=== PATIENT | male | born 1980 | race Caucasian/White ===

== ENCOUNTER 2021-03-20 14:36 | Emergency (ER) | payer MEDICAID ==
[~2021-03-20] VITALS: Ht 172.7 cm; Wt 78.0 kg
[2021-03-20] MEDS ORDERED: SODIUM CHLORIDE 0.9% 1000ML BAG (SEPSIS BOLUS) IV ONE (14:45)
[2021-03-20] MEDS ORDERED: CALCIUM GLUCONATE 100MG/ML 10ML VIAL IV ONE (14:45)
[2021-03-20] MEDS ORDERED: NALOXONE HCL 0.4 MG/ML 1ML VIAL IV ONE (14:45)
[2021-03-20] MEDS: CALCIUM GLUCONATE 1GM PREMIX 50 ML IV SCH ×2 (15:48→17:11)
[2021-03-20 16:10] LABS: CLARITY URINE CLEAR (CLEAR); COLOR URINE DARK YELLOW (YELLOW); KETONES URINE NEGATIVE (NEGATIVE); LEUKOCYTE ESTERASE URINE NEGATIVE (NEGATIVE); NITRITE URINE NEGATIVE (NEGATIVE); OCCULT BLOOD URINE NEGATIVE (NEGATIVE); PROTEIN URINE NEGATIVE (NEGATIVE); SPECIFIC GRAVITY URINE 1.014 (1.005-1.030)
[2021-03-20] MEDS ORDERED: VANCOMYCIN 1 G PREMIX 200 ML IV ONE (16:15)
[2021-03-20] MEDS ORDERED: PIPERACILLIN/TAZ 3.375G PREMIX 50 ML IV ONE (16:15)
[2021-03-20 16:50] LABS: *AMPHETAMINES SCREEN URINE PRESUMTIVE POSITIVE (NEGATIVE); *BARBITURATES SCREEN URINE NEGATIVE (NEGATIVE); CANNABINOID URINE SCREEN NEGATIVE (NEGATIVE); OPIATES URINE SCREEN NEGATIVE (NEGATIVE); PHENCYCLIDINE URINE SCREEN NEGATIVE (NEGATIVE)
[2021-03-20 16:51] LABS: *BENZODIAZEPINES SCREEN URINE NEGATIVE (NEGATIVE); *COCAINE SCREEN URINE NEGATIVE (NEGATIVE); METHADONE URINE SCREEN NEGATIVE (NEGATIVE)
[2021-03-20 18:34] LABS: BASOPHILS % 0.9 % (0.0-2.0); EOSINOPHILS % 0.9 % (0.0-5.0); HEMATOCRIT. 35.8 % (42.0-52.0); HEMOGLOBIN. 12.7 g/dL (14.0-18.0); LYMPHOCYTES % 16.3 % (20.0-50.0); MEAN CORPUSCULAR VOLUME 95.4 fL (80.0-94.0); MONOCYTES % 7.6 % (2.0-8.0); NEUTROPHILS % 74.3 % (40.0-76.0); PLATELET 143 x1000/uL (130-400); RED BLOOD CELL COUNT 3.75 mill/uL (4.7-6.1); RED CELL DISTRIBUTION WIDTH 14.2 % (11.6-14.6)
[2021-03-20 18:40] LABS: CHLORIDE 110 mEq/L (98-107)
[2021-03-20 18:44] LABS: ETHANOL BLOOD < 10 mg/dL
[2021-03-20 19:03] LABS: D-DIMER 1.33 mg/L FEU (<0.50); INR 1.2
[2021-03-20 21:00] VITALS: BP 117/74
[2021-03-20] MEDS ORDERED: IOHEXOL-300 100 ML BOTTLE ONE (23:26)
== END 2021-03-20 23:00 | disposition left against medical advice (07) ==
LOC: ER 14:36 → EDBEDREQSVC 22:21 → EDBEDREQ 22:21 → EDBEDREQTM 22:21 → ENRESERV 22:51 → CANRESERV 22:51 → ER 23:00 → CANBEDREQ 03-21 01:08
DX: I61.9 Nontraumatic intracerebral hemorrhage, unspecified (principal); I49.9 Cardiac arrhythmia, unspecified
CPT/HCPCS: 36415; 70450; 71045; 74177; 80053; 80305; 80320; 81003; 83605; 83690; 84145; 84484; 85025; 85379; 85610; 86850; 86900; 86901; 87040; 87086; 93005; 96361; 96365; 96375; 99285; J0610; J2310; J2543; J7030; Q9967; Z7610; G0480

== ENCOUNTER 2021-03-23 22:30 | Inpatient (IN) | payer MEDICAID, OTHER ==
[~2021-03-23] VITALS: Ht 170.2 cm; Wt 84.4 kg
[2021-03-23] MEDS ORDERED: PIPERACILLIN/TAZ 3.375G PREMIX 50 ML IV ONE (22:45)
[2021-03-23] MEDS ORDERED: NALOXONE HCL 1 MG/ML 2ML VIAL IV ONE (22:45)
[2021-03-23] MEDS ORDERED: SODIUM CHLORIDE 0.9% 1000ML BAG (SEPSIS BOLUS) IV ONE (22:45)
[2021-03-23 23:23] LABS: BASOPHILS % 0.4 % (0.0-2.0); CHLORIDE 108 mEq/L (98-107); EOSINOPHILS % 2.2 % (0.0-5.0); HEMOGLOBIN. 10.4 g/dL (14.0-18.0); LYMPHOCYTES % 30.5 % (20.0-50.0); MEAN CORPUSCULAR HEMOGLOBIN 35.2 pg (28.0-32.0); MEAN CORPUSCULAR VOLUME 97.9 fL (80.0-94.0); MEAN PLATELET VOLUME 8.8 fl (7.4-10.4); MONOCYTES % 10.2 % (2.0-8.0); NEUTROPHILS % 56.7 % (40.0-76.0); PLATELET 135 x1000/uL (130-400); RED BLOOD CELL COUNT 2.96 mill/uL (4.7-6.1); RED CELL DISTRIBUTION WIDTH 13.9 % (11.6-14.6)
[2021-03-23 23:27] LABS: ETHANOL BLOOD 13 mg/dL
[2021-03-24] MEDS ORDERED: ONDANSETRON HCL 4MG/2ML INJ IV PRN (11:15)
[2021-03-24] MEDS ORDERED: HYDROCODONE/ACETAMINOPHEN 5/325MG TABLET PO PRN (11:15)
[2021-03-24] MEDS ORDERED: DOCUSATE SODIUM 100MG CAPSULE PO PRN (11:15)
[2021-03-24] MEDS ORDERED: MAGNESIUM/ALUMINUM HYDROXIDE/SIMETHICONE 30ML UDC PO PRN (11:15)
[2021-03-24] MEDS ORDERED: ACETAMINOPHEN 325MG TABLET PO PRN (11:15)
[2021-03-24] MEDS ORDERED: POTASSIUM CHLORIDE INJ 40 MEQ in DEXT 5% WATER 250 ML IV NR (11:15)
[2021-03-24] MEDS ORDERED: NALOXONE HCL 0.4MG/ML VIAL IV PRN (11:30)
[2021-03-24] MEDS: SODIUM CHLORIDE 0.9% 1,000 ML IV SCH (12:28)
[2021-03-24] MEDS: PANTOPRAZOLE SODIUM 40 MG/VIAL IV SCH (12:29)
[2021-03-24] MEDS: LACTULOSE 20G/30ML UDC PO SCH ×2 (13:15→21:53)
[2021-03-24] MEDS ORDERED: POTASSIUM CHLORIDE 20MEQ TABLET SR PO NR (17:30)
[2021-03-24 18:00] VITALS: BP 133/81
[2021-03-24] MEDS ORDERED: ENOXAPARIN 40MG/0.4ML SYR SUBCUT SCH (18:00)
[2021-03-24 20:00] VITALS: BP 139/80
[2021-03-24 20:39] LABS: *AMPHETAMINES SCREEN URINE PRESUMTIVE POSITIVE (NEGATIVE); *BARBITURATES SCREEN URINE NEGATIVE (NEGATIVE); *BENZODIAZEPINES SCREEN URINE NEGATIVE (NEGATIVE); *COCAINE SCREEN URINE NEGATIVE (NEGATIVE)
[2021-03-24 20:40] LABS: CANNABINOID URINE SCREEN NEGATIVE (NEGATIVE); METHADONE URINE SCREEN NEGATIVE (NEGATIVE); OPIATES URINE SCREEN PRESUMTIVE POSITIVE (NEGATIVE); PHENCYCLIDINE URINE SCREEN NEGATIVE (NEGATIVE)
[2021-03-24 21:17] LABS: CLARITY URINE CLEAR (CLEAR); COLOR URINE YELLOW (YELLOW); SPECIFIC GRAVITY URINE 1.018 (1.005-1.030)
[2021-03-24 21:18] LABS: KETONES URINE NEGATIVE (NEGATIVE); NITRITE URINE NEGATIVE (NEGATIVE); OCCULT BLOOD URINE NEGATIVE (NEGATIVE); PROTEIN URINE NEGATIVE (NEGATIVE)
[2021-03-24 21:19] LABS: LEUKOCYTE ESTERASE URINE NEGATIVE (NEGATIVE)
[2021-03-24 22:00] VITALS: BP 133/76
[2021-03-24] MEDS: THIAMINE HCL 100MG TABLET PO SCH (23:29)
[2021-03-24] MEDS: FOLIC ACID 1MG TABLET PO SCH (23:29)
[2021-03-24] MEDS: MULTIVITAMINS,THER W-MINERALS TABLET PO SCH (23:30)
[2021-03-25] VITALS (8 sets, daily range): BP systolic 122–146; BP diastolic 72–92
[2021-03-25] MEDS: SODIUM CHLORIDE 0.9% 1,000 ML IV SCH (00:28)
[2021-03-25] MEDS ORDERED: QUET200T MT (03:11)
[2021-03-25] MEDS ORDERED: CALC-1042 MT (03:11)
[2021-03-25] MEDS ORDERED: FAMO10TA41 MT (03:23)
[2021-03-25] MEDS ORDERED: PROP10TA10 MT (03:23)
[2021-03-25] MEDS ORDERED: LURA120T MT (03:23)
[2021-03-25] MEDS ORDERED: ASCO100T12 MT (03:23)
[2021-03-25] MEDS ORDERED: ACET325C7 PO (03:23)
[2021-03-25] MEDS ORDERED: IBUP-2028 MT (03:23)
[2021-03-25] MEDS: LACTULOSE 20G/30ML UDC PO SCH ×2 (05:47→14:38)
[2021-03-25 06:50] LABS: CHLORIDE 107 mEq/L (98-107)
[2021-03-25 07:01] LABS: PHOSPHORUS 2.4 mg/dL (2.5-4.9)
[2021-03-25 07:02] LABS: LDL CHOLESTEROL 107 mg/dL (5-100); T4 FREE 1.04 ng/dL (0.76-1.46)
[2021-03-25 07:03] LABS: HDL CHOLESTEROL 16 mg/dL (40-59)
[2021-03-25 07:06] LABS: FOLIC ACID (FOLATE) SERUM 12.7 ng/mL (>5.38)
[2021-03-25 07:27] LABS: BASOPHILS % 0.5 % (0.0-2.0); EOSINOPHILS % 2.4 % (0.0-5.0); HEMOGLOBIN. 11.7 g/dL (14.0-18.0); LYMPHOCYTES % 24.3 % (20.0-50.0); MEAN CORPUSCULAR VOLUME 96.2 fL (80.0-94.0); MEAN PLATELET VOLUME 9.4 fl (7.4-10.4); MONOCYTES % 7.6 % (2.0-8.0); NEUTROPHILS % 65.2 % (40.0-76.0); PLATELET 129 x1000/uL (130-400); RED BLOOD CELL COUNT 3.54 mill/uL (4.7-6.1); RED CELL DISTRIBUTION WIDTH 13.7 % (11.6-14.6)
[2021-03-25] MEDS: THIAMINE HCL 100MG TABLET PO SCH (08:19)
[2021-03-25] MEDS: FOLIC ACID 1MG TABLET PO SCH (08:19)
[2021-03-25] MEDS: MULTIVITAMINS,THER W-MINERALS TABLET PO SCH (08:19)
[2021-03-25] MEDS: PANTOPRAZOLE SODIUM 40 MG/VIAL IV SCH (08:19)
== END 2021-03-25 15:55 | disposition home or self-care (01) | DRG 52 ==
LOC: ER 22:30 → MICUSO 03-24 01:44 → EDBEDREQ 03-24 02:01 → 8WST 03-24 16:01
PROVIDERS: ADMIT Internal Medicine; ATTEND Internal Medicine
DX: G92 Toxic encephalopathy (principal); E44.0 Moderate protein-calorie malnutrition; E87.2 Acidosis; E87.8 Other disorders of electrolyte and fluid balance, not elsewhere classified; I95.9 Hypotension, unspecified; E72.20 Disorder of urea cycle metabolism, unspecified; G90.8 Other disorders of autonomic nervous system; D64.9 Anemia, unspecified; E87.6 Hypokalemia; F10.129 Alcohol abuse with intoxication, unspecified; Y90.9 Presence of alcohol in blood, level not specified; F17.200 Nicotine dependence, unspecified, uncomplicated; Z68.29 Body mass index [BMI] 29.0-29.9, adult; Z71.41 Alcohol abuse counseling and surveillance of alcoholic; F19.10 Other psychoactive substance abuse, uncomplicated
CPT/HCPCS: 36415; 70551; 71045; 80048; 80053; 80061; 80076; 80305; 80320; 81003; 82140; 82607; 82746; 83036; 83605; 83735; 83880; 84100; 84439; 84443; 84481; 84484; 85025; 93005; 93306; 93970; 97161; 97166; 99291; C9113; J1650; J2310; J2543; J3480; J7030; J7060; G0480

== ENCOUNTER 2022-08-11 13:46 | Inpatient (IN) | payer MEDICAID, OTHER ==
[~2022-08-11] VITALS: Ht 172.7 cm; Wt 91.0 kg
[~2022-08-11 13:46] MED LIST: ACET325C7 PO; ASCO100T12 MT; CALC-1042 MT; FAMO10TA41 MT; IBUP-2028 MT; LURA120T MT; PROP10TA10 MT; QUET200T MT
[2022-08-11] MEDS ORDERED: NALOXONE HCL 0.4 MG/ML 1ML VIAL IV ONE (14:00)
[2022-08-11] MEDS ORDERED: CEFTRIAXONE 1 G PREMIX 50 ML IV ONE (14:00)
[2022-08-11] MEDS ORDERED: PANTOPRAZOLE SODIUM 40 MG/VIAL IV ONE (14:15)
[2022-08-11 14:29] LABS: BG BASE EXCESS -15.7 mmol/L (-2.0-2.0); BG CARBOXYHEMOGLOBIN 2.6 % (0.5-1.5); BG DEOXYHEMOGLOBIN 5.4 % (0.0-5.0); BG FRACTION INSPIRED OXYGEN 21; BG HCO3 ACT 9.7 mmol/L (22.0-26.0); BG METHEMOGLOBIN 0.3 % (0.0-1.5); BG OXYGEN SATURATION 94.4 % (92.0-98.5); BG OXYHEMOGLOBIN 91.7 % (94.0-97.0); BG PH 7.281 (7.350-7.450); BG PO2 96.5 mmHg (75.0-100.0); BG SAMPLE SITE RIGHT RADIAL; BG TOTAL HEMOGLOBIN 5.6 g/dL (12.0-18.0); BG VENT MODE ROOM AIR
[2022-08-11 14:44] LABS: BASOPHILS % 0.2 % (0.0-2.0); EOSINOPHILS % 0.1 % (0.0-5.0); MEAN PLATELET VOLUME 9.3 fl (7.4-10.4); MONOCYTES % 9.5 % (2.0-8.0); NEUTROPHILS % 76.2 % (40.0-76.0); PLATELET 170 x1000/uL (130-400); RED BLOOD CELL COUNT 1.72 mill/uL (4.7-6.1); RED CELL DISTRIBUTION WIDTH 18.4 % (11.6-14.6)
[2022-08-11 14:48] LABS: CHLORIDE 102 mEq/L (98-107)
[2022-08-11 14:52] LABS: HEMOGLOBIN. 5.5 g/dL (14.0-18.0)
[2022-08-11] MEDS ORDERED: OCTREOTIDE 1,000 MCG in SODIUM CHLORIDE 0.9% 100 ML IV ONE (15:00)
[2022-08-11] MEDS ORDERED: PANTOPRAZOLE 80 MG in SODIUM CHLORIDE 0.9% 100 ML IV SCH ×2 (15:00→15:15)
[2022-08-11 15:05] LABS: CREATINE KINASE 248 IU/L (39-308); ETHANOL BLOOD 290 mg/dL; INR 1.5; PROTHROMBIN TIME 15.5 sec (9.6-11.0)
[2022-08-11] MEDS ORDERED: OCTREOTIDE 1,000 MCG in SODIUM CHLORIDE 0.9% 98 ML IV ONE (15:15)
[2022-08-11] MEDS ORDERED: ETOMIDATE 2MG/ML 10ML VIAL IV ONE (15:30)
[2022-08-11] MEDS ORDERED: PROPOFOL 10MG/ML 100ML 100 ML IV ONE (15:30)
[2022-08-11] MEDS ORDERED: SUCCINYLCHOLINE CHLORIDE 200MG/10ML IV ONE (15:30)
[2022-08-11] MEDS ORDERED: LACTULOSE ENEMA 1,000ML BOTTLE PR STA (15:32)
[2022-08-11] MEDS ORDERED: OCTREOTIDE 1,000 MCG in SODIUM CHLORIDE 0.9% 100 ML IV SCH ×4 (16:00)
[2022-08-11] MEDS ORDERED: FENTANYL 2500MCG/250ML PMX 250 ML IV PRN ×2 (16:30→17:30)
[2022-08-11] MEDS ORDERED: PROPOFOL 10MG/ML 100ML 100 ML IV PRN (16:30)
[2022-08-11 16:35] LABS: CLARITY URINE CLEAR (CLEAR); COLOR URINE DARK YELLOW (YELLOW); KETONES URINE TRACE (NEGATIVE); LEUKOCYTE ESTERASE URINE TRACE (NEGATIVE); NITRITE URINE NEGATIVE (NEGATIVE); OCCULT BLOOD URINE NEGATIVE (NEGATIVE); PROTEIN URINE TRACE (NEGATIVE); SPECIFIC GRAVITY URINE 1.022 (1.005-1.030)
[2022-08-11 16:49] LABS: *AMPHETAMINES SCREEN URINE PRESUMTIVE POSITIVE (NEGATIVE); *BARBITURATES SCREEN URINE NEGATIVE (NEGATIVE); *BENZODIAZEPINES SCREEN URINE NEGATIVE (NEGATIVE); *COCAINE SCREEN URINE NEGATIVE (NEGATIVE); CANNABINOID URINE SCREEN NEGATIVE (NEGATIVE); METHADONE URINE SCREEN NEGATIVE (NEGATIVE); OPIATES URINE SCREEN NEGATIVE (NEGATIVE); PHENCYCLIDINE URINE SCREEN NEGATIVE (NEGATIVE)
[2022-08-11 16:52] LABS: BETA HYDROXYBUTYRATE 0.3 mMol/L (0.0-0.3); PHOSPHORUS 5.2 mg/dL (2.5-4.9)
[2022-08-11 17:14] LABS: FERRITIN 28 ng/mL (22-322)
[2022-08-11 17:21] LABS: VITAMIN B12 SERUM 1745 pg/mL (211-911)
[2022-08-11 17:25] LABS: HEPATITIS B SURFACE ANTIGEN NEGATIVE
[2022-08-11] MEDS ORDERED: MIDAZOLAM 100MG/100ML PMX 100 ML IV PRN (17:30)
[2022-08-11] MEDS ORDERED: MIDAZOLAM HCL 100 MG in SODIUM CHLORIDE 0.9% 100 ML IV PRN (17:45)
[2022-08-11] MEDS ORDERED: IPRATROPIUM/ALBUTEROL 0.5-3(2.5)MG/3ML NEB HHN SCH (18:00)
[2022-08-11 18:12] LABS: HEMATOCRIT 20.6 % (42.0-52.0); HEMOGLOBIN 6.2 g/dL (14.0-18.0)
[2022-08-11 18:38] LABS: BG BASE EXCESS -22.3 mmol/L (-2.0-2.0); BG CARBOXYHEMOGLOBIN 1.8 % (0.5-1.5); BG DEOXYHEMOGLOBIN 41.7 % (0.0-5.0); BG FRACTION INSPIRED OXYGEN 100; BG HCO3 ACT 6.8 mmol/L (22.0-26.0); BG OXYGEN SATURATION 57.5 % (92.0-98.5); BG OXYHEMOGLOBIN 56.5 % (94.0-97.0); BG PCO2 26.9 mmHg (35.0-45.0); BG PH 7.021 (7.350-7.450); BG PO2 44.5 mmHg (75.0-100.0); BG SAMPLE SITE LEFT BRACHIAL; BG TOTAL HEMOGLOBIN 7.3 g/dL (12.0-18.0); BG VENT MODE VENT - AC
[2022-08-11] MEDS ORDERED: NOREPINEPHRINE 8MG/250ML PMX 250 ML IV ONE (18:45)
[2022-08-11] MEDS ORDERED: SODIUM BICARBONATE 150 MEQ in DEXTROSE 5% WATER 1,000 ML IV SCH (19:15)
[2022-08-11] MEDS ORDERED: NOREPINEPHRINE 8 MG in DEXTROSE 5% WATER 250 ML IV ONE (19:15)
[2022-08-11] MEDS ORDERED: VASOPRESSIN 20 UNITS in SODIUM CHLORIDE 0.9% 100 ML IV ONE (19:30)
[2022-08-11 21:48] LABS: BASOPHILS % 0.7 % (0.0-2.0); EOSINOPHILS % 0.4 % (0.0-5.0); LYMPHOCYTES % 35.5 % (20.0-50.0); MEAN CORPUSCULAR HEMOGLOBIN 31.5 pg (28.0-32.0); MEAN CORPUSCULAR VOLUME 99.8 fL (80.0-94.0); MONOCYTES % 1.5 % (2.0-8.0); NEUTROPHILS % 61.9 % (40.0-76.0); PLATELET 90 x1000/uL (130-400); RED BLOOD CELL COUNT 1.64 mill/uL (4.7-6.1); RED CELL DISTRIBUTION WIDTH 18.6 % (11.6-14.6)
[2022-08-11 21:53] LABS: HEMATOCRIT. 16.4 % (42.0-52.0); HEMOGLOBIN. 5.2 g/dL (14.0-18.0)
[2022-08-11] MEDS ORDERED: LACTULOSE 20G/30ML UDC NG SCH (22:00)
[2022-08-11 22:01] LABS: CHLORIDE 97 mEq/L (98-107)
[2022-08-11 22:01] LABS: BG BASE EXCESS -21.3 mmol/L (-2.0-2.0); BG CARBOXYHEMOGLOBIN 1.1 % (0.5-1.5); BG DEOXYHEMOGLOBIN 16.2 % (0.0-5.0); BG FRACTION INSPIRED OXYGEN 100; BG HCO3 ACT 8.5 mmol/L (22.0-26.0); BG METHEMOGLOBIN 0.5 % (0.0-1.5); BG OXYGEN SATURATION 83.5 % (92.0-98.5); BG OXYHEMOGLOBIN 82.2 % (94.0-97.0); BG PCO2 37.7 mmHg (35.0-45.0); BG PH 6.971 (7.350-7.450); BG PO2 71.4 mmHg (75.0-100.0); BG SAMPLE SITE RIGHT FEMORAL; BG VENT MODE VENT - AC
[2022-08-11 22:17] LABS: PLATELET ESTIMATE DECREASED
[2022-08-11] MEDS ORDERED: CALCIUM CHLORIDE 1,000 MG in DEXT 5% WATER 90 ML IV ONE (22:30)
[2022-08-11] MEDS ORDERED: SODIUM BICARBONATE 8.4% 1 MEQ/ML 50ML SYR IV ONE (22:30)
[2022-08-11 23:48] VITALS: BP 60/17
[2022-08-12] MEDS ORDERED: NOREPINEPHRINE 32 MG in DEXTROSE 5% WATER 250 ML IV PRN (00:15)
[2022-08-12] MEDS ORDERED: PANTOPRAZOLE SODIUM 40 MG/VIAL IV SCH (09:00)
== END 2022-08-12 05:21 | DRG 133 ==
LOC: ER 13:46 → EDBEDREQ 16:16 → EDBEDREQTM 16:16 → MICUSO 23:53
PROVIDERS: ADMIT Internal Medicine; ATTEND Internal Medicine
PROC: 5A1935Z Respiratory Ventilation, Less than 24 Consecutive Hours (ICD-10-PCS; principal; 2022-08-11)
PROC: 0BH17EZ Insertion of Endotracheal Airway into Trachea, Via Natural or Artificial Opening (ICD-10-PCS; 2022-08-11)
PROC: 5A12012 Performance of Cardiac Output, Single, Manual (ICD-10-PCS; 2022-08-11)
PROC: 30233K1 Transfusion of Nonautologous Frozen Plasma into Peripheral Vein, Percutaneous Approach (ICD-10-PCS; 2022-08-11)
PROC: 30233N1 Transfusion of Nonautologous Red Blood Cells into Peripheral Vein, Percutaneous Approach (ICD-10-PCS; 2022-08-11)
PROC: 02HV33Z Insertion of Infusion Device into Superior Vena Cava, Percutaneous Approach (ICD-10-PCS; 2022-08-11)
DX: J96.01 Acute respiratory failure with hypoxia (principal); R57.8 Other shock; J69.0 Pneumonitis due to inhalation of food and vomit; G93.41 Metabolic encephalopathy; E43 Unspecified severe protein-calorie malnutrition; E72.20 Disorder of urea cycle metabolism, unspecified; K70.30 Alcoholic cirrhosis of liver without ascites; Z66 Do not resuscitate; K92.2 Gastrointestinal hemorrhage, unspecified; K86.1 Other chronic pancreatitis; E87.5 Hyperkalemia; D64.9 Anemia, unspecified; F15.90 Other stimulant use, unspecified, uncomplicated; I10 Essential (primary) hypertension; F17.210 Nicotine dependence, cigarettes, uncomplicated; Y90.8 Blood alcohol level of 240 mg/100 ml or more; E87.20 Acidosis, unspecified; J98.11 Atelectasis; F19.10 Other psychoactive substance abuse, uncomplicated; Z98.84 Bariatric surgery status; Z68.30 Body mass index [BMI] 30.0-30.9, adult; F10.229 Alcohol dependence with intoxication, unspecified
CPT/HCPCS: 31500; 36415; 36600; 71045; 80053; 80305; 80307; 80320; 80329; 81003; 82010; 82140; 82375; 82550; 82607; 82728; 82805; 82962; 83540; 83550; 83605; 83735; 83930; 84100; 84443; 84484; 85014; 85018; 85025; 85044; 86705; 86709; 86803; 86850; 86900; 86920; 86927; 87340; 93005; 94002; 99291; C9113; J0696; J2310; J2354; J2704; J3010; J3490; J7050; J7060; J7070; P9016; P9017; G0480